=== PATIENT | female | born 1990 ===

== ENCOUNTER 2018-09-20 13:45 | Emergency (ER) | payer OTHER ==
[2018-09-20 14:23] VITALS: BP 111/73
--- NOTE | 2018-09-20 14:51 | UC ---
- HPI Summary HPI Summary: 27-year-old female who is approximately 26 weeks presents stating she slipped on the ice earlier this morning while getting out of her car and fell to the ground on her right side. States at lunchtime she started noticing some lower abdominal cramping and has noticed that she has had a lot of movement since the onset of the cramping. She denies vaginal bleeding or leaking of fluid. She states that she has been receiving routine OB care in [facility] and that at her last ultrasound she was told told by her TELEVISION SERVICE ENGINEER that her "placenta is low lying". - History of Current Complaint Chief Complaint: UCAbdominalPain Stated Complaint: ABD PAIN Time Seen by Provider: 09/20/18 14:43 Hx Obtained From: Patient Pain Intensity: 1 - Assessment Hx Now: Yes - Allergies/Home Medications Allergies/Adverse Reactions: Allergies Allergy/AdvReac Type Severity Reaction Status Date / Time No Known Allergies Allergy Verified 09/20/18 14:13 Home Medications: Home Medications Calcium Carbonate [Calcium/C/D] 1 chw PO DAILY 09/20/18 [History Confirmed 09/20] Comb No.42/Folic Acid [Prena1 Chew 1.4 mg] 1 chw PO DAILY 09/20/18 [ History Confirmed 09/20/18] PMH/Surg Hx/FS Hx/Imm Hx Previously Healthy: Yes - Denies significant PMH - Surgical History Surgical History: None - Family History Known Family History: Positive: Non-Contributory - Social History Occupation: Student Lives: With Family Alcohol Use: None Substance Use Type: None Smoking Status (MU): Never Smoked Tobacco Review of Systems All Other Systems Reviewed And Are Negative: Yes Constitutional: Negative: Fever, Chills Respiratory: Negative: Shortness Of Breath, Cough Cardiovascular: Negative: Palpitations, Chest Pain Gastrointestinal: Positive: Abdominal Pain. Negative: Vomiting, Diarrhea, Nausea Genitourinary: Negative: Abnormal Bleeding Musculoskeletal: Positive: Negative Neurological: Positive: Negative Is Patient Immunocompromised?: No Physical Exam - Physical Exam Triage Information Reviewed: Yes Vital Signs Reviewed: Yes Appearance: Positive: Well-Appearing, No Pain Distress, Well-Nourished Skin: Positive: Warm, Skin Color Reflects Adequate Perfusion, Dry Head/Face: Positive: Other - Atruamatic. Normocephalic. Neck: Positive: Supple, Nontender Respiratory/Lung Sounds: Positive: Clear to Auscultation, Breath Sounds Present Cardiovascular: Positive: RRR, Pulses are Symmetrical in both Upper and Lower Extremities, S1, S2 Abdomen Description: Positive: Nontender, No Organomegaly, Soft, Other: - Fundus firm and height consistent with stated gestational age. Musculoskeletal: Positive: Normal Neurological: Positive: Sensory/Motor Intact, Alert, Oriented to Person Place, Time Course/Dx - Course Course Of Treatment: 27-year-old female who is approximately 26 weeks presents stating she slipped on the ice earlier this morning while getting out of her car and fell to the ground on her right side. States at lunchtime she started noticing some lower abdominal cramping and has noticed that she has had a lot of movement since the onset of the cramping. She denies vaginal bleeding or leaking of fluid. She states that she has been receiving routine OB care in [facility] and that at her last ultrasound she was told told by her TELEVISION SERVICE ENGINEER that her "placenta is low lying". Afebrile. Vital signs are stable. Her exam is unremarkable. With the question of where her placenta is lying and her complaints of lower abdominal cramping I am recommending that she be evaluated in the emergency room where should they have access to ultrasound and monitoring should this be necessary. Patient is agreeable to this and is electing to transport via private vehicle. - Differential Diagnosis/HQI/PQRI: Intrauterine , /Embryonic Demise , Placenta Previa, Pre-term Labor - Diagnoses Provider Diagnoses: Abdominal cramping affecting Discharge - Sign-Out/Discharge Documenting (check all that apply): Patient Departure All imaging exams completed and their final reports reviewed: No Studies - Discharge Plan Condition: Stable Disposition: HOME-RECOMMEND TO ED Referrals: No Primary Care Phys,NOPCP [Primary Care Provider] - Additional Instructions: With your abdominal cramping after falling I am recommending that you go to the emergency room for evaluation as we do not have ultrasound available at this facility. Please go directly to the emergency room at [facility] for evaluation. - Billing Disposition and Condition Condition: STABLE Disposition: Home-Recommend to ED
== END 2018-09-20 15:00 | disposition home health service (06) ==
LOC: UCEAST 13:45
DX: O9A.212 Injury, poisoning and certain other consequences of external causes complicating pregnancy, second trimester (principal); R10.31 Right lower quadrant pain; Z3A.26 26 weeks gestation of pregnancy; W00.0XXA Fall on same level due to ice and snow, initial encounter; Y92.9 Unspecified place or not applicable
CPT/HCPCS: 99202; G0463

== ENCOUNTER 2018-09-20 15:18 | Emergency (ER) | payer OTHER ==
--- NOTE | 2018-09-20 16:06 | ED ---
- HPI Summary HPI Summary: Pt is a 27 y/o female who presents to the ED c/o abdominal cramping. She is currently 25 weeks and has a low placenta. This is her first . At 13:00 today she slipped on an ice pack and landed on her right elbow. Pt denies any head injury or injury to her abdomen. Afterwards she ate lunch and felt abdominal cramping, rated 2/10 in severity, and felt the baby move a lot. Pt denies any vaginal bleeding. She is currently still feeling the baby move. - History of Current Complaint Chief Complaint: EDOBProblems Stated Complaint: 25 WEEKS PREG/ABD CRAMPING Time Seen by Provider: 09/20/18 16:01 Hx Obtained From: Patient Chief Complaint: Other: - abd cramping Onset/Duration: Started Hours Ago - 13:00, Still Present Timing: Constant Current Severity: Mild Pain Intensity: 2 Location of Pain: Diffuse - abdomen Character: Cramping Aggravating Factors: Other: - slipping on ice Alleviating Factors: Nothing Associated Signs and Symptoms: Negative: Vaginal Bleeding or Discharge - Assessment Hx Now: Yes - Allergies/Home Medications Allergies/Adverse Reactions: Allergies Allergy/AdvReac Type Severity Reaction Status Date / Time No Known Allergies Allergy Verified 09/20/18 14:13 PMH/Surg Hx/FS Hx/Imm Hx Endocrine/Hematology History: Denies: Hx Diabetes Cardiovascular History: Denies: Hx Hypertension Infectious Disease History: No Infectious Disease History: Reports: Traveled Outside the [place] in Last 30 Days - [place] - Family History Known Family History: Negative: Hypertension, Diabetes - Social History Alcohol Use: None Hx Substance Use: No Substance Use Type: Reports: None Hx Tobacco Use: No Smoking Status (MU): Never Smoked Tobacco Review of Systems Positive: Abdominal Pain - cramping Positive: other - NEGATIVE: vaginal bleeding All Other Systems Reviewed And Are Negative: Yes Physical Exam - Summary Physical Exam Summary: GENERAL: Patient is a well-developed and nourished F who is lying comfortable in the stretcher. Patient is not in any acute respiratory distress. HEAD AND FACE: Normocephalic EYES: PERRLA, EOMI x 2. EARS: Hearing grossly intact. MOUTH: Oropharynx within normal limits. NECK: Supple, trachea is midline, no adenopathy, no JVD, no carotid bruit. CHEST: Symmetric, no tenderness at palpation LUNGS: Clear to auscultation bilaterally. No wheezing or crackles. CVS: Regular rate and rhythm, S1 and S2 present, no murmurs or gallops appreciated. ABDOMEN: Soft, non-tender. Bowel sounds are normal. No abdominal abnormal pulsations. Gravid. EXTREMITIES: Full ROM in all major joints, no edema, no cyanosis or clubbing. NEURO: Alert and oriented x 3. No acute neurological deficits. Speech is normal and follows commands. SKIN: Dry and warm - Physical Exam Triage Information Reviewed: Yes Vital Signs Reviewed: Yes Diagnostics - Vital Signs Vital Signs Temp Pulse Resp BP Pulse Ox 09/20/18 15:40 98.2 F 80 16 128/72 99 - Laboratory Result Diagrams: 09/20/18 16:58 09/20/18 16:58 Lab Statement: Any lab studies that have been ordered have been reviewed, and results considered in the medical decision making process. - Ultrasound No standard instances Ultrasound Interpretation Completed By: Radiologist Summary of Ultrasound Findings: US: Single intrauterine gestation with a composite gestational age of 26 weeks 0 days. Three-vessel cord is identified. heart activity is noted at 136/m. ED physician reviewed radiology report. Re-Evaluation - Re-Evaluation First Eval Re-Evaluation Time: 17:12 Change: Unchanged Comment: Evaluated at bedside by OB nurse. Stress strip showed no evidence of contractions. Course/Dx - Course Course Of Treatment: Pt is a 27 y/o female who presents to the ED c/o abdominal cramping in s/p fall. A US revealed Single intrauterine gestation with a composite gestational age of 26 weeks 0 days. Three-vessel cord is identified. heart activity is noted at 136/m. Stress strip done by OB nurse showed no evidence of contractions. Workup was otherwise unremarkable. Patient will be discharged with a final dx of fall. I discussed results with patient and she reports feeling better. She is hemodynamically stable and safe for discharge. Strict return precautions given and she will otherwise follow up with her PCP and COMBINATION MACHINE TOOL SETTER. - Diagnoses Provider Diagnoses: Fall Discharge - Sign-Out/Discharge Documenting (check all that apply): Patient Departure - Discharge Patient Received Moderate/Deep Sedation with Procedure: No - Discharge Plan Condition: Stable Disposition: HOME Patient Education Materials: Threatened Miscarriage (ED), Fall Prevention (ED) Referrals: [facility] [place] [facility] [Outside] Additional Instructions: Follow up with your primary care physician and COMBINATION MACHINE TOOL SETTER in 1-3 days. RETURN TO THE EMERGENCY DEPARTMENT FOR CHANGING OR WORSENING SYMPTOMS. - Billing Disposition and Condition Condition: STABLE Disposition: Home - Attestation Statements Document Initiated by Eva: Yes Documenting Scribe: Gertrudis Bradley Provider For Whom Bashire is Documenting (Include Credential): Juma Richardson MD Scribe Attestation: IGertrudis, scribed for Juma Richardson MD on 09/21/18 at 1824. Scribe Documentation Reviewed: Yes Provider Attestation: The documentation as recorded by the Gertrudis moser accurately reflects the service I personally performed and the decisions made by me, Juma Richardson MD Status of Scribe Document: Viewed
[2018-09-20 17:24] LABS: ABS Basophils 0 10^3/ul (0-0.2); ABS Eosinophils 0.1 10^3/ul (0-0.6); ABS Lymphocytes 1.7 10^3/ul (1.0-4.8); ABS Monocytes 0.6 10^3/ul (0-0.8); ABS Neutrophils 6.7 10^3/ul (1.5-7.7); ABS Nucleated RBC 0 10^3/ul; Eosinophil % 0.8 %; Hematocrit 27 % (35-47); Hemoglobin 9.5 g/dl (12.0-16.0); Lymphocyte % 18.4 %; Mean Corpuscular HGB Conc 35 g/dl (31-36); Mean Corpuscular Hemoglobin 32 pg (27-31); Mean Corpuscular Volume 91 fL (80-97); Mean Platelet Volume 7.7 fL (7.4-10.4); Nucleated Red Blood Cells % 0; Platelet Count 233 10^3/ul (150-450); Red Blood Count 2.99 10^6/ul (4.00-5.40); Red Cell Distribution Width 13 % (10.5-15); White Blood Count 9.2 10^3/ul (3.5-10.8)
[2018-09-20 17:32] LABS: Albumin 3.7 g/dL (3.2-5.2); Albumin/Globulin Ratio 1.3 (1-3); BUN/Creatinine Ratio 11.8 (8-20); Calcium 8.5 mg/dL (8.6-10.3); EGFR African American 177.8 (>60); EGFR Non-African American 146.9 (>60); Globulin 2.8 g/dL (2-4); Potassium 3.7 mmol/L (3.5-5.0); Total Bilirubin 0.2 mg/dL (0.2-1.0); Total Protein 6.5 g/dL (6.4-8.9)
[2018-09-20 18:35] LABS: Urine Appearance Cloudy; Urine Bacteria Absent (Absent); Urine Bilirubin Negative (Negative); Urine Blood Negative (Negative); Urine Color Straw; Urine Glucose Negative (Negative); Urine Ketones Negative (Negative); Urine Nitrite Negative (Negative); Urine Protein Negative (Negative); Urine Red Blood Cell Trace(0-2/hpf) (Absent); Urine Specific Gravity 1.009 (1.010-1.030); Urine Squamous Epithelial Cell Present (Absent); Urine Urobilinogen Negative (Negative); Urine White Blood Cell Trace(0-5/hpf) (Absent)
[2018-09-20 19:01] VITALS: BP 120/73
--- NOTE | 2018-09-22 06:00 | PN ---
Progress Note - Progress Note Date of Service: 09/22/18 Note: patient urine culture grew strept group b 10-25,000. this is not a significant culture so will not treat at this time.
== END 2018-09-20 19:00 | disposition home or self-care (01) ==
LOC: ED 15:18
DX: O26.92 Pregnancy related conditions, unspecified, second trimester (principal); R10.9 Unspecified abdominal pain; Z3A.25 25 weeks gestation of pregnancy; Z91.81 History of falling
CPT/HCPCS: 36415; 76815; 80053; 81003; 81015; 83030; 85025; 87086; 87088; 99282